=== PATIENT | male | born 1995 | race Caucasian/White ===

== ENCOUNTER 2016-09-16 18:42 | Emergency (ER) | payer BC, OTHER ==
[~2016-09-16] VITALS: Wt 131.5 kg
[~2016-09-16 18:42] MED LIST: ATARAX25 MG PO; FLUOR OP OPH; VALTREX500 MG PO; VICODIN 500 MG-1 TAB PO; ZOFRAN4 MG PO
[2016-09-16 18:48] VITALS: BP 180/92
[2016-09-16] MEDS ORDERED: VISTARIL25 M2 PO (19:08)
== END 2016-09-16 19:38 | disposition home or self-care (01) ==
LOC: ED 18:42
DX: F41.9 Anxiety disorder, unspecified (principal); R03.0 Elevated blood-pressure reading, without diagnosis of hypertension

== ENCOUNTER 2016-10-19 07:03 | Emergency (ER) | payer BC, OTHER ==
[~2016-10-19] VITALS: Ht 185.4 cm; Wt 132.9 kg
[~2016-10-19 07:03] MED LIST changes: +VISTARIL25 M2 PO
[2016-10-19 08:17] LABS: BASO # 0.1 10*3/uL (0.0-0.1); BASO % 0.4 % (0.0-1.0); EOS # 0.1 10*3/uL (0.0-0.4); HEMATOCRIT 46.8 % (42.0-52.0); HEMOGLOBIN 16.2 g/dl (14.0-18.0); LYMPH # 3.5 10*3/uL (1.3-4.4); LYMPH % 28.1 % (27.0-41.0); MEAN CELL VOLUME 91.6 fl (80.0-94.0); MEAN CORPUSCULAR HGB 31.7 pg (27.0-31.0); MEAN CORPUSCULAR HGB CONC 34.6 g/dl (33.0-37.0); MEAN PLATELET VOLUME 10.7 fl (9.6-12.3); MONO # 0.8 10*3/uL (0.1-1.0); MONO % 6.2 % (3.0-9.0); PLATELET COUNT AUTOMATED 224 10*3/uL (130-400); RED BLOOD COUNT 5.11 10*6/uL (4.50-5.90); RED CELL DISTRI WIDTH 12.4 % (0-14.5); WHITE BLOOD COUNT 12.5 10*3/uL (4.8-10.8)
[2016-10-19 08:27] VITALS: BP 123/54
[2016-10-19 08:28] LABS: BILIRUBIN NEGATIVE (NEGATIVE); BLOOD NEGATIVE (NEGATIVE); CLARITY CLEAR (CLEAR); COLOR YELLOW (YELLOW); GLUCOSE NEGATIVE (NEGATIVE); KETONE NEGATIVE (NEGATIVE); LEUKO ESTERASE NEGATIVE (NEGATIVE); NITRITE NEGATIVE (NEGATIVE); PROTEIN NEGATIVE (NEGATIVE); SPECIFIC GRAVITY 1.015 (1.005-1.030)
[2016-10-19 08:30] LABS: URINE REFLEX COMMENT NO (NO)
[2016-10-19 08:32] LABS: ALBUMIN 3.9 gm/dl (3.1-4.5); ALKALINE PHOSPHATASE 93 U/L (45-117); BUN 14 mg/dl (7-24); CARBON DIOXIDE 26 mmol/L (21-32); CHLORIDE 105 mmol/L (98-107); EST GLOM FILT AFRICAN AMERICAN > 60 ml/min; GLUCOSE 110 mg/dL (65-99); MAGNESIUM 1.8 mg/dL (1.5-2.1); POTASSIUM 3.7 mmol/L (3.5-5.1); SGOT/AST 11 IU/L (3-35); SGPT/ALT 35 U/L (12-78); SODIUM 140 mmol/L (136-145); TOTAL PROTEIN 7.5 gm/dL (6.4-8.2)
[2016-10-19 08:33] LABS: C-REACTIVE PROTEIN < 0.29 MG/DL (0-0.3)
[2016-10-19] MEDS ORDERED: ZOFRAN ODT4 MG SL (09:28)
[2016-10-19 10:13] LABS: LA>2 REFLEX 2 HR DRAW NOW
== END 2016-10-19 10:28 | disposition home or self-care (01) ==
LOC: ED 07:03
PROVIDERS: Emergency Medicine
DX: K59.00 Constipation, unspecified (principal); R10.32 Left lower quadrant pain; R11.2 Nausea with vomiting, unspecified; F17.200 Nicotine dependence, unspecified, uncomplicated; Z87.442 Personal history of urinary calculi

== ENCOUNTER 2018-09-28 04:58 | Emergency (ER) | payer BC ==
[~2018-09-28] VITALS: Ht 182.8 cm; Wt 133.8 kg
[~2018-09-28 04:58] MED LIST changes: +ZOFRAN ODT4 MG SL
[2018-09-28 05:28] LABS: BASO # 0.1 10*3/uL (0.0-0.1); BASO % 0.5 % (0.0-1.0); EOS # 0.2 10*3/uL (0.0-0.4); EOS % 2.2 % (1.0-4.0); HEMATOCRIT 49.6 % (42.0-52.0); HEMOGLOBIN 16.9 g/dl (14.0-18.0); LYMPH # 3.3 10*3/uL (1.3-4.4); LYMPH % 36.1 % (27.0-41.0); MEAN CORPUSCULAR HGB 32.4 pg (27.0-31.0); MEAN CORPUSCULAR HGB CONC 34.1 g/dl (33.0-37.0); MEAN PLATELET VOLUME 10.7 fl (9.6-12.3); MONO # 0.6 10*3/uL (0.1-1.0); MONO % 6.4 % (3.0-9.0); NEUT % 54.4 % (47.0-73.0); PLATELET COUNT AUTOMATED 188 10*3/uL (130-400); RED BLOOD COUNT 5.22 10*6/uL (4.50-5.90); RED CELL DISTRI WIDTH 12.9 % (0-14.5); WHITE BLOOD COUNT 9.3 10*3/uL (4.8-10.8)
[2018-09-28 05:46] LABS: ALKALINE PHOSPHATASE 88 U/L (45-117); BUN 13 mg/dl (7-24); CHLORIDE 108 mmol/L (98-107); CREATININE 0.94 mg/dL (0.70-1.30); LIPASE 129 U/L (73-393); POTASSIUM 3.8 mmol/L (3.5-5.1); SGOT/AST 33 IU/L (3-35); SGPT/ALT 64 U/L (12-78); SODIUM 143 mmol/L (136-145); TOTAL PROTEIN 7.6 gm/dL (6.4-8.2)
[2018-09-28 06:20] LABS: TROPONIN I < 0.015 ng/ml (<0.045)
[2018-09-28 06:25] VITALS: BP 125/58
[2018-09-28] MEDS ORDERED: LOMOTIL 2.5-0.1 EACH PO (06:50)
[2018-09-28] MEDS ORDERED: ZOFRAN4 MG PO (06:50)
[2018-09-28 06:59] LABS: BILIRUBIN NEGATIVE (NEGATIVE); BLOOD NEGATIVE (NEGATIVE); CLARITY CLEAR (CLEAR); COLOR YELLOW (YELLOW); GLUCOSE NEGATIVE (NEGATIVE); KETONE NEGATIVE (NEGATIVE); LEUKO ESTERASE NEGATIVE (NEGATIVE); NITRITE NEGATIVE (NEGATIVE); PH 5.5 (5.0-9.0)
[2018-09-28 07:08] LABS: RBC 0-2 rbc/hpf (0-2); WBC 0-2 wbc/hpf (0-5)
== END 2018-09-28 07:00 | disposition home or self-care (01) ==
LOC: ED 04:58
PROVIDERS: Emergency Medicine Emergency Medical Services
DX: K52.9 Noninfective gastroenteritis and colitis, unspecified (principal); R11.2 Nausea with vomiting, unspecified; Z79.899 Other long term (current) drug therapy

== ENCOUNTER 2018-12-13 01:48 | Emergency (ER) | payer BC ==
[~2018-12-13] VITALS: Ht 182.8 cm; Wt 133.8 kg
--- NOTE | ~2018-12-13 | EKG ---
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
[2018-12-13 01:48] VITALS: BP 147/69
[~2018-12-13 01:48] MED LIST changes: +LOMOTIL 2.5-0.1 EACH PO
[2018-12-13 02:51] LABS: BASO # 0.1 10*3/uL (0.0-0.1); BASO % 0.5 % (0.0-1.0); EOS # 0.2 10*3/uL (0.0-0.4); EOS % 1.9 % (1.0-4.0); HEMATOCRIT 48.2 % (42.0-52.0); HEMOGLOBIN 16.8 g/dl (14.0-18.0); LYMPH # 2.5 10*3/uL (1.3-4.4); LYMPH % 19.3 % (27.0-41.0); MEAN CORPUSCULAR HGB 32.1 pg (27.0-31.0); MEAN CORPUSCULAR HGB CONC 34.9 g/dl (33.0-37.0); MEAN PLATELET VOLUME 10.4 fl (9.6-12.3); MONO # 0.9 10*3/uL (0.1-1.0); MONO % 6.8 % (3.0-9.0); NEUT # 9.1 10*3/uL (2.3-7.9); NEUT % 71.3 % (47.0-73.0); PLATELET COUNT AUTOMATED 190 10*3/uL (130-400); RED BLOOD COUNT 5.24 10*6/uL (4.50-5.90); RED CELL DISTRI WIDTH 12.7 % (0-14.5); WHITE BLOOD COUNT 12.7 10*3/uL (4.8-10.8)
[2018-12-13 03:07] LABS: ALBUMIN 3.8 gm/dl (3.1-4.5); ALKALINE PHOSPHATASE 94 U/L (45-117); BUN 9 mg/dl (7-24); CHLORIDE 108 mmol/L (98-107); CREATININE 0.93 mg/dL (0.70-1.30); LIPASE 120 U/L (73-393); POTASSIUM 3.4 mmol/L (3.5-5.1); SGOT/AST 53 IU/L (3-35); SGPT/ALT 66 U/L (12-78); SODIUM 140 mmol/L (136-145); TOTAL PROTEIN 7.3 gm/dL (6.4-8.2)
[2018-12-13 03:09] LABS: TROPONIN I < 0.015 ng/ml (<0.045)
[2018-12-13 04:37] LABS: BILIRUBIN NEGATIVE (NEGATIVE); BLOOD NEGATIVE (NEGATIVE); CLARITY CLEAR (CLEAR); COLOR YELLOW (YELLOW); GLUCOSE NEGATIVE (NEGATIVE); KETONE NEGATIVE (NEGATIVE); LEUKO ESTERASE NEGATIVE (NEGATIVE); NITRITE NEGATIVE (NEGATIVE)
[2018-12-13 04:45] LABS: RBC 0-2 rbc/hpf (0-2); WBC 0-2 wbc/hpf (0-5)
[2018-12-13] MEDS ORDERED: DICYCLOMINE HCL20 MG PO (05:39)
[2018-12-13] MEDS ORDERED: PROTONIX40 MG PO (05:39)
== END 2018-12-13 06:04 | disposition home or self-care (01) ==
LOC: ED 01:48
PROVIDERS: Emergency Medicine Emergency Medical Services
DX: K29.70 Gastritis, unspecified, without bleeding (principal); K21.9 Gastro-esophageal reflux disease without esophagitis; F17.200 Nicotine dependence, unspecified, uncomplicated; Z79.899 Other long term (current) drug therapy

== ENCOUNTER → 2019-05-22 | Outpatient (CLI) | payer BC ==
[~2019-05-22] MED LIST changes: +DICYCLOMINE HCL20 MG PO; +PROTONIX40 MG PO
== END ==
LOC: US 09:18
DX: R74.8 Abnormal levels of other serum enzymes (principal); K80.20 Calculus of gallbladder without cholecystitis without obstruction